=== PATIENT | male | born 1930 | race Caucasian/White ===

== ENCOUNTER → 2016-11-09 | Outpatient (CLI) | payer MEDICARE ==
--- NOTE | 2016-11-09 09:29 | DIAGNOSTIC IMAGING REPORT ---
PROCEDURE: CT PELVIS WITHOUT CONTRAST INDICATION: Right testicular and inguinal pressure. TECHNIQUE: Axial scans with and without Valsalva. Coronal and sagittal re-formations. COMPARISON: CT abdomen/pelvis 11/10/2014 from [facility], [place], [place] [address]. FINDINGS: 3 cm right and 2 cm left fat-containing inguinal hernias, unchanged, with minimal progression with Valsalva. Normal appendix. Moderate sigmoid diverticulosis but no inflammatory changes. This are dystrophic prostate calcifications. No adenopathy or free fluid. No suspicious osseous lesions. IMPRESSION: 1. Small bilateral fat containing inguinal hernias, unchanged 2. Sigmoid diverticulosis
--- NOTE | 2016-11-09 09:29 | DIAGNOSTIC IMAGING REPORT ---
PROCEDURE: CT PELVIS WITHOUT CONTRAST INDICATION: Right testicular and inguinal pressure. TECHNIQUE: Axial scans with and without Valsalva. Coronal and sagittal re-formations. COMPARISON: CT abdomen/pelvis 11/10/2014 from [facility], [place], [place] [address]. FINDINGS: 3 cm right and 2 cm left fat-containing inguinal hernias, unchanged, with minimal progression with Valsalva. Normal appendix. Moderate sigmoid diverticulosis but no inflammatory changes. This are dystrophic prostate calcifications. No adenopathy or free fluid. No suspicious osseous lesions. IMPRESSION: 1. Small bilateral fat containing inguinal hernias, unchanged 2. Sigmoid diverticulosis
== END ==
LOC: CT SRH 08:34
DX: K40.20 Bilateral inguinal hernia, without obstruction or gangrene, not specified as recurrent (principal); K57.30 Diverticulosis of large intestine without perforation or abscess without bleeding